=== PATIENT | female | born 1935 | race Caucasian/White ===

== ENCOUNTER 2020-02-11 18:51 | Inpatient (IN) | payer OTHER ==
[~2020-02-11] VITALS: Ht 162.6 cm; Wt 51.7 kg
[~2020-02-11 18:51] MED LIST: B12INJ PO; CARAFATE1 GM PO; CHILDREN'S ASPI81 M1 PO; IRON325 M1 PO; LISINOPRIL10 MG PO; NIASPAN ER 101000 M1 PO; PAXIL10 MG PO; PROTONIX40 M4 PO; TYLENOL325 MG PO; VALIUM5 MG PO; VITAMINC500 PO; ZOCOR40 MG PO
[2020-02-11 19:02] VITALS: BP 133/60
[2020-02-11 20:18] LABS: ABSOLUTE NEUTROPHILS 5.3 thou/uL (1.4-8.2); BASOPHILS 0.3 % (0.0-2.0); EOSINOPHILS 0.9 % (0.0-3.0); HEMATOCRIT 42.7 % (37.0-47.0); HEMOGLOBIN 14.2 gm/dL (12.0-15.0); LYMPHOCYTES 9.9 % (24.0-44.0); MCH 31.6 pg (26.0-34.0); MCHC 33.2 g/dL (28.0-37.0); MCV 95.2 fL (80.0-100.0); MONOCYTES 11.3 % (1.0-8.0); PLATELET COUNT 236 thou/uL (150-400); POLYS 77.6 % (36.0-66.0); RBC 4.48 mil/uL (4.20-5.00); RDW 13.1 % (10.5-14.5); URINE BILIRUBIN NEGATIVE (Negative); URINE BLOOD NEGATIVE (Negative); URINE CLARITY SL CLOUDY; URINE COLOR YELLOW; URINE GLUCOSE-RANDOM* NEGATIVE (Negative); URINE KETONES NEGATIVE (Negative); URINE NITRITE-REFLEX NEGATIVE (Negative); URINE PROTEIN (DIPSTICK) NEGATIVE (Negative); URINE SPECIFIC GRAVITY 1.025 (1.005-1.035); WBC 6.8 thou/uL (4.0-11.0)
[2020-02-11 20:21] LABS: URINE LEUKOCYTES-REFLEX 2+ (Negative)
[2020-02-11 20:26] LABS: BACTERIA-REFLEX >30 Many /HPF (None Seen); CASTS None Seen /LPF (None Seen); CRYSTALS None Seen /LPF (None Seen); SQUAMOUS 0-3 Few /LPF (0-3); URINE RBC None Seen /HPF (0-2); URINE WBC-REFLEX 6-15 Few /HPF (0-5)
[2020-02-11 20:28] LABS: CREATININE 0.9 mg/dL (0.6-1.0); POTASSIUM 3.6 mmol/L (3.5-5.1)
[2020-02-11 22:17] VITALS: BP 139/72
[2020-02-11 22:25] LABS: FOLIC ACID 18.6 ng/mL (8.6-58.9); TSH 1.019 uIU/mL (0.358-3.740)
[2020-02-11 22:26] VITALS: BP 133/69
[2020-02-12 04:20] VITALS: BP 146/79
--- NOTE | 2020-02-12 04:53 | NUR ---
PT ARRIVED TO UNIT WITH SON, CYNTHIA AT BEDSIDE. PT AOX2, SELF AND TIME. PT CONFUSED IN REGARDS TO PLACE REPORTING SHE IS AT [facility] AND IN REGARDS TO SITUATION REPORTING SHE DOES NOT KNOW WHY SHE IS IN THE HOSPITAL AND WHO LEFT HER HERE. PT DENIES PAIN AND SOA. PT NOTED TO BE SEVERELY ANXIOUS AND RESTLESS EVIDENCE BY MULTIPLE EPISODES OF HER GETTING OUT OF BED AFTER BEING TOILETED REPORTING SHE HAS TO GO TO THE BATHROOM AGAIN. PT NOTED TO REPEAT THE SAME QUESTIONS WITHOUT RECALL OF ANSWER OR PREVIOUS BEHAVIORS. PT GIVEN IV HALDOL X1 WITHOUT EFFECT. RECEIVED ORDER FOR IM ZYPREXA X1 WITHOUT EFFECT. PT CONTINUES TO BE RESTLESS AND ANXIOUS. LIBRARY MONITOR NOTIFIED, PT ROOM MOVED NEAR NURSES STATION. RECEIVED ORDERS FOR IV ATIVAN X1 WITH EFFECT. PT OBSERVED RESTING WITHOUT INTERRUPTION OR OBSERVATION OF PAIN OR DISCOMFORT. PT AMBULATING WITH STBA TO BATHROOM AND BEDSIDE COMMODE. ENCOURAGED PT TO NOTIFY STAFF FOR ALL NEEDS AND CONCERNS. CALL LIGHT WITHIN REACH, BED ALARM ON, BED IN LOWEST POSITION. WILL CONTINUE TO MONITOR.
[2020-02-12 06:31] LABS: CALCIUM 8.2 mg/dL (8.5-10.1); CREATININE 0.7 mg/dL (0.6-1.0); POTASSIUM 3.6 mmol/L (3.5-5.1)
[2020-02-12 08:26] VITALS: BP 125/68
--- NOTE | 2020-02-12 08:52 | EKG ---
[facility] [place] [address] ELECTROCARDIOGRAM REPORT Name: JAYDEN BEEBE Room #: 446-P ADM IN M.R.#: [id number] Admission: 02/11/20 Attend Phys: Malena Amaro Discharge: Date of : 37 Report #: [id number] THIS REPORT FOR: cc: Gurpreet Schwarz MD, Austin T. MD Lundgren, Craig H. MD [facility] ~ THIS REPORT FOR: //name// [facility] ED Test Date: 2020-02-11 Test Time: 19:19:20 Pat Name: JAYDEN BEEBE Department: Room: [facility] Gender: F Learning Technologies Specialist: TIRSO : 1935 Requested By: Ricardo Russell Order Number: [id number] MD: Dominik Paulino Measurements Intervals [place] Rate: 70 P: 79 NJ: 115 QRS: 48 QRSD: 94 T: 113 QT: 360 QTc: 389 Interpretive Statements Sinus rhythm Borderline short [place] interval Nonspecific T abnrm, anterolateral leads Compared to ECG 03/21/2015 22:05:34 Atrial premature complex(es) no longer present Electronically Signed On 02-12-2020 8:51:18 CDT by Dominik Paulino [email or web address] <ELECTRONICALLY SIGNED> By: Dominik Paulino MD, [facility] 02/12/20 0851 18 18 Dominik Paulino MD, [facility] /EPI
--- NOTE | 2020-02-12 15:31 | NUR ---
PT ADMITTED RELATED TO UTI, CONFUSION. CM REVIEWED CHART AND SPOKE WITH CARE TEAM. CM CALLED AND SPOKE WITH PT'S SON CYNTHIA. HE INDICATED THAT PT RESIDES IN [place] AT [facility] A GROUP HOME COMMUNITY WITH HER SPOUSE. 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 HE STATED THAT FACILITY PROVIDES LUNCH BUT THAT PT DOESN'T GO TO EAT. 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 SON INDICATED NO HH OR SKILLED HX. HE IS INTERESTED IN GETTING SECONDARY MEDICAID IN THE EVENT PT NEED LTC PLACEMENT. CM INDICATED THAT PT, OT, AND PSYC WOULD SEE PT AND MAKE RECOMMENDATIONS FOR APPROPRIATE LEVEL OF CARE UPON DC. CM TO FAX FACESHEET TO [employer] FOR THEM TO FOLLOW UP TO ASSIST WITH MEDICAD APPLICATION. CM TO FOLLOW INDICATED WITH DC PLANNING.
--- NOTE | 2020-02-12 17:25 | NUR ---
PT ASSESSED AT START OF SHIFT. CALM AND COOPERATIVE BUT INTERMITTENT CONFUSION AND IMPULSIVE. PO HYDROXYZINE GIVEN THIS AFTERNOON WHICH HELPED SOME. DR. DAVISON HERE FOR GERIPSYCH CONSULT. NO ORDERS. SODIUM LEVEL RETURNED TO NORMAL. IV FLUIDS DC'D. PT EATING AND DRINKING OK. AMBULATES STEADY W/ STANDBY. PT/OT EVALS ORDERED.
[2020-02-12 19:29] VITALS: BP 152/67
--- NOTE | 2020-02-13 02:23 | NUR ---
ASSUMED PT CARE AT 1900. PT VERY CONFUSED. CONSTANTLY GETTING UP WITHOUT HELP. WORRIED THAT DOESN'T KNOW WHERE SHE IS. DIDN'T SLEEP AT ALL DESPITE BEING MEDICATED. URINE SAMPLE COLLECTED AND SENT TO LAB. ANTIBIOTICS INFUSED PER ORDER. UP TO TOILET WITH WALKER AND STANDBY, STEADY ON FEET. IMPULSIVE, AND RESTLESS ALL EVENING.
[2020-02-13 04:09] VITALS: BP 168/77
[2020-02-13 06:30] LABS: CALCIUM 9.1 mg/dL (8.5-10.1); CREATININE 0.7 mg/dL (0.6-1.0); PHOSPHORUS 2.9 mg/dL (2.5-4.9)
[2020-02-13 07:17] VITALS: BP 171/84
--- NOTE | 2020-02-13 12:08 | NUR ---
FAXED FACE SHEET TO MIRIAM AT [facility] RECEIVED CONFIRMATION TO HELP WITH MEDICAID APPLICATION FOR SECONDARY INSURANCE.
--- NOTE | 2020-02-13 15:26 | NUR ---
PT STILL RECEIVING IV ABX FOR UTI. CARE TEAM INDICATED THAT SKILLED POST ACUTE CARE STAY MIGHT BE APPROPRIATE UPON DC. CM CALLED PT'S SON CYNTHIA AND LEFT VM TO DISCUSS WHERE THEY MIGHT LIKE REFERRALS SENT FOR POSSIBLE ADMISSION. AWAITING RESPONSE. FACE SHEET HAD BEEN SENT TO [facility] FOR THEM TO ASSIST WITH SECONDARY MEDICAID APPLICATION.
[2020-02-13 16:23] VITALS: BP 131/67
--- NOTE | 2020-02-13 17:05 | NUR ---
VSS-AFEBRILE. LUNGS CLEAR-ROOM AIR. VERY CONFUSED TODAY, WELL VISUAL AND AUDITORY HALLUCINATIONS. NIGHT NURSE REPORTS THAT PATIENT HAS BARELY SLEPT IN THE LAST 24-36 HOURS. CAN BE IMPULSIVE, FALL PRECAUTIONS IN PLACE. AWAITING DISCHARGE ORDERS WITH HOME HEALTH TO BE SET UP. BED AND CHAIR ALARMS ACITVATED.
[2020-02-13 19:07] VITALS: BP 148/81
--- NOTE | 2020-02-14 04:12 | NUR ---
ASSUMED PT CARE AT 1900. PT CONTINUES TO BE SEVERELY CONFUSED AND IMPULSIVE. CONSTANTLY TRYING TO GET OUT OF BED. AUDITORY AND VISUAL HALLUCINATIONS, PT THINKS HER IS IN THE ROOM AND IS CONVERSING WITH HER. UP TO TOILET WIHT WALKER, STEADY ON FEET. LOST IV ACCESS THEN PT TOOK OUT THE NEW ONE. WILL CONTINUE TO MONITOR.
[2020-02-14 05:00] VITALS: BP 150/80
[2020-02-14 07:38] VITALS: BP 143/66
--- NOTE | 2020-02-14 09:52 | NUR ---
CM CALLED PT'S SON AGAIN THIS AM AND LEFT VM REQUESTING PC REGARDING SKILLED FACILITIES HE WOULD LIKE REFERRALS SENT TO. AWAITINF RESPONSE.
--- NOTE | 2020-02-14 10:32 | NUR ---
PT IS RESTING IN BED WAS UP IN BEDSIDE CHAIR FOR BREAKFAST NOW IS IN BED SLEEPING. PT WAS GIVEN TYLENOL EARLIER.
--- NOTE | 2020-02-14 14:06 | NUR ---
CM SPOKE WITH PT'S SON THIS AM AND PROVIDED HIM A LIST OF SNF TO REVIEW. HE ASKED THAT REFERRAL BE SENT TO [facility]. REFERRAL SENT AWAITING RESPONSE.
[2020-02-14 15:03] LABS: ABSOLUTE NEUTROPHILS 4.4 thou/uL (1.4-8.2); BASOPHILS 0.7 % (0.0-2.0); EOSINOPHILS 1.6 % (0.0-3.0); HEMATOCRIT 46.5 % (37.0-47.0); HEMOGLOBIN 15.5 gm/dL (12.0-15.0); LYMPHOCYTES 10.7 % (24.0-44.0); MCHC 33.4 g/dL (28.0-37.0); MONOCYTES 9.2 % (1.0-8.0); PLATELET COUNT 285 thou/uL (150-400); POLYS 77.8 % (36.0-66.0); RBC 4.84 mil/uL (4.20-5.00); RDW 13.4 % (10.5-14.5); WBC 5.7 thou/uL (4.0-11.0)
[2020-02-14 15:43] LABS: ALBUMIN 3.1 g/dL (3.4-5.0); CALCIUM 9.9 mg/dL (8.5-10.1); CREATININE 0.9 mg/dL (0.6-1.0); POTASSIUM 3.9 mmol/L (3.5-5.1); TOTAL BILIRUBIN 0.5 mg/dL (<0.1-1.0); TOTAL PROTEIN 6.4 g/dL (6.4-8.2)
--- NOTE | 2020-02-14 15:54 | NUR ---
FAXED REFERRAL TO [facility] SPOKE WITH JAZZY IN ADM SHE RECEIVED REFERRAL AND IS GOING TO SPEAK WITH SON (DPOA) AND WILL LET ME KNOW IF SHE CAN ACCEPT. DP TO FOLLOW.
--- NOTE | 2020-02-14 19:22 | NUR ---
PT IN BEDSIDE CHAIR EATING DINNER SHE PICKS AT MEAL DRINKING ENSURE. PT HAS CONFUSION. NEEDS REDIRECTED FREQUENTLY.NO PAIN OR RESP DISTRESS AT THIS TIME. INCONT OF B&B.ROOM AIR. RIGHT IV SL.
[2020-02-14 19:35] VITALS: BP 129/56
--- NOTE | 2020-02-15 06:06 | NUR ---
pt was getting agitated at the start of the shift, impulsive. night meds given and pt was able to sleep all night. pt has not had a good rest in about 3days. pt is cont and can be incont of urine. pt is a ashly fall risk. fall prec in place. v/s stable. no s/s of distress. will cont to monitor
[2020-02-15 07:17] VITALS: BP 104/58; BP 149/82; BP 86/53
--- NOTE | 2020-02-15 14:43 | NUR ---
[facility] INDICATED THAT THEY AREN'T ABLE TO ACCEPT PT THEY DONM T HAVE VASILIY OPEN BEDS ON THEIR SECURED UNIT. CM NOTOFIED PT'S SON CYNTHIA AND HIS ANUPAM. CM INDCIATED THAT DR. DAVISON WITH PSYC INDICATED PT MIGHT BENEFIT FROM SHORT STAY ON [facility]. THEY INDICATED THEY WEREN'T OPPOSED TO THAT. ANUPAM EMAILED DPOA PAPERWORK IT WAS PLACED ON CHART. DR. DAVISON INDICATED THEY COULD ACCEPT PT TOMORROW LONG HER LABS TO CHECK BMP WERE STABLE. ONCE MEDICALLY STABLE CONTACT [facility] AT AND NOTIFY FAMILY OF TRANSFER. CM ABLE TO FOLLOW INDICATED WITH DC PLANNING.
[2020-02-15 15:30] VITALS: BP 120/54
[2020-02-15 19:45] VITALS: BP 126/68
--- NOTE | 2020-02-16 03:35 | NUR ---
PT CARE ASSUMED AT 1915 .PT IS ALERT AND VERY CONFUSED.PT IS ON ROOM AIR.PT IS IN HEART HEALTHY DIET AND NEEDS TRAY TO NE SET UP.PT IS INCONTINENT TO B/B.PT IS ON NS 75ML/HR WITH IV ACCESS ON RFA.WILL CONTINUE TO MONITOR PRT POC
[2020-02-16 04:15] VITALS: BP 117/74
[2020-02-16 06:28] LABS: CALCIUM 9.2 mg/dL (8.5-10.1); CREATININE 0.8 mg/dL (0.6-1.0)
[2020-02-16 09:40] VITALS: BP 141/73
[2020-02-16 15:31] VITALS: BP 147/59
--- NOTE | 2020-02-16 15:31 | NUR ---
PT ASSESSEDA AT START OF SHIFT. PT ORIENTED TO SELF BUT VERY CONFUSED AND REPETATIVE. REORIENTED TO SITUATION. PT IS CALM AND COOPERATIVE BUT SOMEWHAT ANXIOUS. ZYPREXA GIVEN W/ SOME NOTED RELAXATION. EATING AND DRINKING WELL. AMBULATES FAIRLY STEADY W/ WALKER AND STANDBY ASSIST. SODIUM BETTER TODAY.
[2020-02-16 20:00] VITALS: BP 120/57
--- NOTE | 2020-02-17 01:48 | NUR ---
ASSUMED PT CARE AT 1900. PT VERY ANXIOUS TONIGHT. WORRIED ABOUT IV, CONCERNED ABOUT NOT HAVING CLOTHES TO WEAR. EXPERIENCING VISUAL HALLUCINATIONS - CONSTANTLY ASKING WHO IS IN HER BED OR "WHERE DID THOSE KIDS GO?" AND DTR CALLED THIS EVENING, PROVIDED UPDATES FOR BOTH. PT BELIEVES SHE IS GOING HOME TOMORROW, FREQUENTLY REMINDED OTHERWISE. UP TO TOILET WITH WALKER, STEADY ON FEET. SLEPT FOR ROUGHLY 2 HOURS THIS EVENING TOTAL.
--- NOTE | 2020-02-17 04:20 | NUR ---
PT CARE ASSUMED AT 0200 WITH PT IN BED.PT KEPT GETTING OUT OF BED AND DOESNOT LISTEN TO DIRECTION.PT IS VERY CONFUSED AND HALLUCINATING.PT GIVEN OLANZAPINE AND PT STILL AGITATING.BULK SEALER OPERATOR MAUREEN PAGED AND ORDERED HALDOL 2.5MG ONETIME DOSE.WILL CONTINUE TO MONITOR PT PER POC
[2020-02-17 07:37] VITALS: BP 154/71
--- NOTE | 2020-02-17 18:10 | NUR ---
VSS-AFEBRILE. LUNGS CLEAR-ROOM AIR. ORIENTED TO PERSON ONLY.REMAINS IMPULSIVE. OOB WITH 1 ASSIST AND USE OF WALKER. DECLINED ALL MEALS TODAY, ONLY CONSUMED HER DIET SUPPLEMENTS. IV REMOVED, AND REPORT CALLED TO [facility]. TRANSPORTED WITH ALL PERSONAL BELONGINGS VIA WHEELCHAIR. SON CYNTHIA NOTIFIED OF TRANSFER, WILL BRING MORE CLOTHING FOR PATIENT TOMORROW.
[2020-02-17] MEDS ORDERED: TRAZODONE HCL50 MG PO (23:48)
[2020-02-17] MEDS ORDERED: LACTULOSE PO (23:49)
[2020-02-17] MEDS ORDERED: VITAMIN D32000 UNI2 PO (23:50)
[2020-02-17] MEDS ORDERED: ROCEPHIN 11 GM/1001 IV (23:51)
[2020-02-17] MEDS ORDERED: OLANZAPINE2.5 MG PO (23:52)
== END 2020-02-17 18:15 | DRG 689 ==
LOC: ER 18:51 → EROBS 21:01 → 4S 21:01
PROVIDERS: Emergency Medicine; Internal Medicine; Nurse Practitioner Family; Psychiatry & Neurology Psychiatry; ADMIT Hospitalist
DX: N39.0 Urinary tract infection, site not specified (principal); E43 Unspecified severe protein-calorie malnutrition; G93.41 Metabolic encephalopathy; E87.1 Hypo-osmolality and hyponatremia; E86.0 Dehydration; I10 Essential (primary) hypertension; E78.00 Pure hypercholesterolemia, unspecified; Z96.641 Presence of right artificial hip joint; Z90.49 Acquired absence of other specified parts of digestive tract; F03.90 Unspecified dementia, unspecified severity, without behavioral disturbance, psychotic disturbance, mood disturbance, and anxiety; Z88.0 Allergy status to penicillin; E55.9 Vitamin D deficiency, unspecified; K59.00 Constipation, unspecified; F32.9 Major depressive disorder, single episode, unspecified; F41.9 Anxiety disorder, unspecified; R41.0 Disorientation, unspecified; E78.5 Hyperlipidemia, unspecified; G47.00 Insomnia, unspecified
CPT/HCPCS: 10102

== ENCOUNTER 2020-02-17 18:14 | Inpatient (IN) | payer OTHER ==
[~2020-02-17] VITALS: Ht 154.9 cm; Wt 54.0 kg
[2020-02-17 18:30] VITALS: BP 136/68
--- NOTE | 2020-02-17 19:59 | NUR ---
1809 PATIENT ARRIVED TO [facility] UNIT VIA WC ACCOMPANIED BY OVER HAULER HELPER. PATIENT IN WC SITTING IN DAY ROOM. WHEN TELEPHONE CLERK TELEGRAPH OFFICE APPROCHED PATIENT, PATIENT WAS CONFUSED TO WHERE SHE WAS. TELEPHONE CLERK TELEGRAPH OFFICE ORIENTED PATIENT TO BEING IN HOSPITAL ON THE [facility] UNIT. PATIENT STATES SHE IS HERE FOR RENAL DISEASE AND THAT SHE IS GETTING TESTS DONE. WHILE TALKING TO PATIENT, PATIENT IS PARANOID THAT OTHERS ARE LOOKING AT HER. WHEN TELEPHONE CLERK TELEGRAPH OFFICE ASKS IF PATIENT IS HAVING HALLUCINATIONS PATIENT DENIES. TELEPHONE CLERK TELEGRAPH OFFICE EXPLAINS TO PATIENT SHE WILL BE HAVING A ROOMMATE AND PATIENT STATES "ONLY ROOMATE I CAN HAVE IS MY ". PATIENT DOES LIVE WITH . PATIENT TAKEN TO ROOM FOR PHYSICAL EXAM. PATIENT NOTED WITH NO BRIEF ON, DENIED NEED TO USE BATHROOM AT THAT TIME. SKIN IS INTACT WITH NO RED AREAS NOTED. LUNG SOUNDS CLEAR, BS ACTIVE, NO EDEMA NOTED. FEW SCABS NOTED TO ARMS AND HANDS. DENIES PAIN AT THAT TIME. PATIENT NOTED TO BE UNSTEADY WHEN PATIENT STANDS UP. BRIEF APPLIED AND TAKEN TO DAYROOM IN WC DENIES NEEDS AT THIS TIME. REPORT GIVEN TO ONCOMING SHIFT. LUNG SOUNDS CLEAR, BS ACTIVE
[2020-02-17 23:08] VITALS: BP 136/68
[2020-02-17] MEDS ORDERED: TRAZODONE HCL50 MG PO (23:48)
[2020-02-17] MEDS ORDERED: LACTULOSE PO (23:49)
[2020-02-17] MEDS ORDERED: VITAMIN D32000 UNI2 PO (23:50)
[2020-02-17] MEDS ORDERED: ROCEPHIN 11 GM/1001 IV (23:51)
[2020-02-17] MEDS ORDERED: OLANZAPINE2.5 MG PO (23:52)
--- NOTE | 2020-02-18 01:16 | NUR ---
PATIENT SAT UP IN WC IN DINING ROOM TONIGHT UNTIL SHE WAS READY AND ASSISTED TO BED AT 2200. TYLENOL 650MG WAS GIVEN FOR L KNEE PAIN OF 3/10. SHE IS CONFUSED AND NOT SURE HOW SHE ENDED UP HERE. SHE THINKS HER GOT TIRED OF HER AND SENT HER HERE. SHE TOOK HER MEDS WHOLE WITH WATER AND WITHOUT INCIDENT. PATIENT STATES SHE LIVES AT HOME WITH HER . SHE HAS BEEN CALM BUT A LITTLE ANXIOUS UNDERSTANDING WHAT IS GOING ON. SHE HAS BEEN INDEPENDENT WITH CARES. PATIENT HAS BEEN KNOWN TO BE IMPULSIVE AND IS UNSTEADY ON HER FEET SO SHE HAS BEEN USING A WC. CHAIR ALARM IN CHAIR. PATIENT IS IN BED NOW AND SLEEPING. CONTINUAL ROUNDS. NO SI/HI/AVH. BED IN LOW POSITION AND BED ALARM IS ON. CONTINUING TO MONITOR.
[2020-02-18 08:24] VITALS: BP 127/67
--- NOTE | 2020-02-18 09:20 | NUR ---
0700 ASSUMED CARE OF PATIENT. PATIENT IN BED WITH EYES CLOSED AT THAT TIME. 0800 PATIENT TO BREAKROOM FOR BREAKFAST. AMBULATED X1 ASSIST. DENIES NEEDS AT THIS TIME. WILL CONTINUE TO OBSERVE.
--- NOTE | 2020-02-18 16:20 | NUR ---
PATIENT SITTING AT TABLE IN DAY ROOM. PATIENT IS PLEASANTLY CONFUSED. PATIENT STATING SHE NEEDS TO GO SEE HER FRIEND SHE TAKES CARE OF HER. PATIENT IS ONLY ORIENTED TO PERSON. WHEN LOTTERY MANAGER EXPLAINS TO PATIENT WHERE SHE IS PATIENT SAYS SHE CAN'T BE. PATIENT TO BATHROOM, AMB USING WALKER WITH STEADY GAIT. BACK TO DAYROOM AND SITS AT TABLE. DENIES OTHER NEEDS AT THIS TIME.
[2020-02-18 19:21] VITALS: BP 117/72
[2020-02-19] VITALS (10 sets, daily range): BP systolic 88–129; BP diastolic 48–59
--- NOTE | 2020-02-19 05:00 | NUR ---
Assumed care of pt @ 1900. Pt calm et cooperative though very confused most of shift. Sat in dayroom et watched television with peers until HS but did not socialize with peers. Took medications whole without difficulty. Assisted with ambulating very short distances. Pt seemed very unsteady on her feet. VSWNL. Health assessment with no abnormalities noted at present time. Denies SI/HI but very confused during questioning. Was put to bed @ 2200 but kept attempting to climb out of bed. Pt was then assisted into a recliner et placed in the dayroom to be watched more closely. Zyprexa was given PRN for agitation. Pt was assisted back to bed around 0400. Currently resting in bed with eyes closed. Will continue to monitor per protocol.
--- NOTE | 2020-02-19 10:12 | EKG ---
[facility] [place] [address] ELECTROCARDIOGRAM REPORT Name: JAYDEN BEEBE Room #: [facility] ADM IN M.R.#: [id number] Admission: 02/17/20 Attend Phys: Terri Addison MD Discharge: Date of : 37 Report #: [id number] THIS REPORT FOR: cc: Gurpreet Schwarz MD, Austin T. MD Couchonnal, Luis F. MD ~ THIS REPORT FOR: //name// [facility] Test Date: 2020-02-19 Test Time: 10:02:50 Pat Name: JAYDEN BEEBE Department: Room: [facility] Gender: F Log Manager: LOUISA : 1935 Requested By: Sofia Chavez Order Number: [id number] MD: Akin Ruelas Measurements Intervals [place] Rate: 68 P: 67 MO: 109 QRS: 62 QRSD: 76 T: 99 QT: 367 QTc: 391 Interpretive Statements Sinus rhythm Short [place] interval Probable left atrial enlargement Nonspecific T abnrm, anterolateral leads Compared to ECG 02/11/2020 19:19:20 No significant changes Electronically Signed On 02-19-2020 10:11:08 CDT by Akin Ruelas [email or web address] <ELECTRONICALLY SIGNED> By: Akin Ruelas MD 02/19/20 1011 1002 1002 Akin Ruelas MD /EPI
--- NOTE | 2020-02-19 10:22 | NUR ---
FILL TECHNICIAN CALLED FOR PT AT 0949. PT BECAME UNRESPONSIVE IN DINING ROOM AFTER EATING BREAKFAST THIS MORNING. SEE FILL TECHNICIAN FLOWSHEET FOR DETAILS.
[2020-02-19 10:30] LABS: ABSOLUTE NEUTROPHILS 3.9 thou/uL (1.4-8.2); BASOPHILS 0.7 % (0.0-2.0); EOSINOPHILS 2.1 % (0.0-3.0); HEMATOCRIT 46.2 % (37.0-47.0); HEMOGLOBIN 15.1 gm/dL (12.0-15.0); LYMPHOCYTES 15.4 % (24.0-44.0); MCH 31.6 pg (26.0-34.0); MCHC 32.7 g/dL (28.0-37.0); MCV 96.8 fL (80.0-100.0); PLATELET COUNT 277 thou/uL (150-400); POLYS 70.8 % (36.0-66.0); RBC 4.77 mil/uL (4.20-5.00); RDW 13.3 % (10.5-14.5); WBC 5.6 thou/uL (4.0-11.0)
[2020-02-19 10:51] LABS: ANION GAP 7 mmol/L (7-16); BUN 18 mg/dL (7-18); CALCIUM 9.8 mg/dL (8.5-10.1); CHLORIDE 99 mmol/L (98-107); CO2 28 mmol/L (21-32); CREATININE 0.9 mg/dL (0.6-1.0); GLUCOSE 115 mg/dL (74-106); MAGNESIUM 2.2 mg/dL (1.8-2.4); SGOT 31 U/L (15-37); SGPT 36 U/L (30-65); SODIUM 134 mmol/L (136-145); TOTAL BILIRUBIN 0.4 mg/dL (<0.1-1.0); TOTAL PROTEIN 6.2 g/dL (6.4-8.2); TROPONIN-I <0.06 ng/mL (<0.06)
--- NOTE | 2020-02-19 14:57 | NUR ---
0740 Sitting at table in dining room with head turned to side. Responds to name and is able to ambulate to room with assistance with slow, steady gait. Orientated to name only, answers questions in a whisper. Denies SI/HI. Some rambling confused speech. Able to brush teeth independently after toothpaste placed on brush. Drank 100% of Ensure, compliant with meds. Calm and cooperative. Breath sounds clear t/o, bilaterally equal. Regular HR auscultated. Color pink with brisk capillary refill and palpable peripheral pulses +2/+4. No edema noted. Yellow urine per toilet. Active bowel sounds over soft, flat abdomen. Unable to state last BM. Ambulated back out to dining room with minimal assistance.
--- NOTE | 2020-02-19 15:02 | NUR ---
SW did a check in with pt instead of group due to COVID-19 guidelines. Pt had a critical incident this morning, and is currently in her room resting.
--- NOTE | 2020-02-20 02:50 | NUR ---
Assumed care of patient this pm shift. Patient in bed resting when RN assumed care. Patient denies pain. Patient denies hi/si. Patient confused. Patient in clean gown resting. Patient calm and cooperative. Patient takes medications whole. Patients assessment shows clear breath sounds, active bowel sounds, and s1 s2. Patient presently sleeping, no concerns. We will continue to monitor.
[2020-02-20 08:59] VITALS: BP 100/66
--- NOTE | 2020-02-20 09:58 | NUR ---
0700 ASSUMED CARE OF PATIENT, PATIENT GETTING READY TO GO TO DAY ROOM AT THAT TIME. PATIENT TO DAYROOM PER . PATIENT REQUESTING TO GO HELP HER , STATING "HE NEEDS MY HELP AND DOESN'T KNOW WHERE IM AT". PATIENT A&O X2, PATIENT PARANOID ABOUT HER APPEARANCE, WORRIED THAT OTHERS ARE LOOKING AT HER. WILL CONTINUE TO OBSERVE.
--- NOTE | 2020-02-20 13:57 | NUR ---
Sw met with pt and discussed her concerns about leaving. Sw reassured her that d/c was expected soon. She seemed satisfied with this response but is veru forgetful. There was no group to COVRUMA 19 restrictions
--- NOTE | 2020-02-20 16:37 | NUR ---
ARLEN contacted pt's DPOA and son Irineo and provided an update. He said he does not believe his mom can remain [place] and needs help with placement; his father will also have to be moved. ARLEN educated him on [place] vs [place] care. He said he would like a list of options emailed to him at [email or web address]. ARLEN emailed him a Medicare listing in the [place] area as he requested. He said he will respond with 3-5 options. SW team will continue to follow pt during her stay on this unit.
--- NOTE | 2020-02-20 18:11 | NUR ---
C/O PAIN TO LEFT KNEE RATING PAIN A 8 ON A NUMERIC PAIN SCALE. MUSCLE RUB APPLIED TO LEFT KNEE WHILE LYING IN BED. PATIENT STATES "IM GONNA TRY TO REST". WILL CONTINUE TO OBSERVE.
--- NOTE | 2020-02-20 19:04 | NUR ---
PATIENT CONFUSED AT THIS TIME. PATIENT WEARING GOWN LYING IN BED. SIDE RAILS UP. REPORT GIVEN TO ONCOMING SHIFT.
[2020-02-20 19:29] VITALS: BP 150/66
--- NOTE | 2020-02-21 00:46 | NUR ---
Assumed care at change of shift. Pt. was sitting in day room with walker in front of her. She denies any pain or needs. She ambulates with a slow and steady gait. She repeatedly asks about her and children. She wants to know where they are and when she will be able to see them again. Pt. assisted into bed.
[2020-02-21 08:44] VITALS: BP 112/58
--- NOTE | 2020-02-21 12:51 | NUR ---
PT A&OX2, UNABLE TO DETERMINE SI/HI. PATIENT PARTICIPATED IN MORNING ACTIVITIES AND ATE BREAKFAST. AFTER MORNING MEDS PATIENT WANTED TO SLEEP AND DID NOT WANT LUNCH. PATIENT COOPERATIVE. WILL CONTINUE TO MONITOR.
[2020-02-21 19:37] VITALS: BP 102/55
[2020-02-21 20:00] VITALS: BP 102/55
--- NOTE | 2020-02-21 22:53 | NUR ---
PT ASSESSMENT DONE AND VSS. MEDS GIVEN AND WELL TOLERATED. FALL PRECAUTIONS IN PLACE. WENT TO BED EARLY. ONLY CONCERNED ABOUT WHEN HER MEDS WERE GOING TO COME. ALERT AND COOPERATIVE. WILL CONTINUE TO MONITOR.
[2020-02-22 07:30] VITALS: BP 131/79
[2020-02-22 09:41] LABS: URINE BILIRUBIN NEGATIVE (Negative); URINE BLOOD NEGATIVE (Negative); URINE CLARITY SL CLOUDY; URINE COLOR YELLOW; URINE GLUCOSE-RANDOM* NEGATIVE (Negative); URINE KETONES TRACE (Negative); URINE LEUKOCYTES 2+ (Negative); URINE NITRITE NEGATIVE (Negative); URINE PROTEIN (DIPSTICK) NEGATIVE (Negative); URINE SPECIFIC GRAVITY 1.015 (1.005-1.035); URINE UROBILINOGEN 0.2 E.U./dl (0.2-1.0)
[2020-02-22 09:50] VITALS: BP 131/79
[2020-02-22 10:08] LABS: AMORPHOUS URATES Moderate /LPF (None Seen); BACTERIA 1-9 Few /HPF (None Seen); CASTS None Seen /LPF (None Seen); SQUAMOUS 4-10 Moderate /LPF (0-3); URINE RBC None Seen /HPF (0-2); URINE WBC 6-15 Few /HPF (0-5)
--- NOTE | 2020-02-22 10:50 | NUR ---
1030 RESUMMED CARE FROM OVERNIGHT SHIFT THIS AM, PATIENT VERY ANXIOUS AND STILL IN ROOM. PATIENT WAS ASSISTED WITH HYGEINE AND USED A WALKER TO COME TO THE DAY ROOM TO EAT BREAKFAST. PATIENT TOOK MEDICATION WITHOUT INCIDENCE, PATIENT BOWEL SOUNDS PRESENT IN ALL 4 QUADRANTS. ABDOMEN SOFT LUNGS CLEAR PATIENT HAS A RED AREA IN BART AREA I PUT SOME BARRIER OINTMENT IN AREA. I COLLECTED THE UA THIS AM PATIENT WENT BACK TO LIE DOWN AFTER BREAKFAST. PATIENT DENIES SI/HI/AH/VH AT PRESENT WILL CONTINUE TO MONITOR PATIENT FOR SAFETY AMD BEHAVIORS.
--- NOTE | 2020-02-22 15:14 | NUR ---
PATTERN ILLUSTRATOR completed 1:1 visit with peer who was seated at table in day room. Funmilayo expressed that she would like to nap, but feels as if she goes to her room for a nap she will miss out on the happenings in the day room. Funmilayo spoke about her great grandchildren from out of state and how she misses them.
--- NOTE | 2020-02-22 16:04 | NUR ---
Pt completed Medicaid viviana via phone today with [employer]. SW assisted pt in signing her Medicaid viviana. SW sent referrals to Tenn[facility] Garza, Jason Anthony, and [facility] for pt. SW team will continue to follow pt during her stay on this unit.
[2020-02-22 20:03] VITALS: BP 126/67
--- NOTE | 2020-02-22 22:20 | NUR ---
Assumed care at change of shift. Pt. was already in room dressed only in a gown and brief. She repeatedly called this nurse into her room for multiple different request. She then would repeat the same request within 5 - 10 minutes. HS meds given. Will monitor effects of Trazadone that is scheduled. Pt. is up with a walker in hallway and furniture walks in room to bathroom. She is steady on her feet with a consistent gait. Pt. denies pain and no signs or symptoms of distress noted.
[2020-02-23 00:13] VITALS: BP 126/67
[2020-02-23 08:30] VITALS: BP 101/40
[2020-02-23 09:11] VITALS: BP 104/40
[2020-02-23 09:18] VITALS: BP 104/40
--- NOTE | 2020-02-23 10:24 | NUR ---
ASSUMED CARE OF PT AT 0700. PT AWAKE, COOPERATIVE AND SOMEWHAT ANXIOUS. PT SITTING UPRIGHT IN BED FOR BREAKFAST AND MEDICATIONS. PT GIVEN/TOOK MEDICATIONS, WHOLE, WITHOUT ANY DIFFICULTY. PT CONFUSED ABOUT HER LOCATION, STATING, "I NEED TO GET OUT OF THIS BASEMENT... MY DOESN'T KNOW WHERE I AM." PT REDIRECTED AND REORIENTED TO ROOM/UNIT. PT STATES SHE HAS PAIN IN RLE AND WOULD LIKE TO STAY IN BED FOR THE MORNING. DECLINED TO PARTICIPATE IN GROUP/ACTIVITY. PT STATES PAIN IS 3/10 AND DECLINED ANY PRN PAIN MEDICATION. PTS WATER REFILLED AND PLACED AT BEDSIDE; PT ENCOURAGED TO DRINK FLUIDS. PT DENIES SI/HI/AH/VH. PT ASSISTED WITH ADLs. WILL CONTINUE TO MONITOR.
--- NOTE | 2020-02-23 13:00 | NUR ---
0900 PATIENT REFUSED TO GET UP TO COME TO GROUP SHE STATES SHE HURTS. I TOLD PATIENT THAT WHEN YOU LAY IN BED AND DON'T MOVE AROUND YOU BECOME STIFF. I MADE PATIENT GET UP TO EAT LUNCH AFTER LUNCH SHE TALKED HER NURSE TO LET HER GO BACK TO BED. PATIENT IS VERY CONFUSED AND IS VERY ANXIOUS WILL CONTINUE TO ENCOURAGE PATIENT.
--- NOTE | 2020-02-23 15:27 | NUR ---
ASSUMED CARE OF PT. PT WAVING AT NURSE TO COME TO HER. PT STATED SHE FINISHED HER PAPERS AND SHE SHOULD BE ABLE TO GO HOME. REDIRECTED PT AND STATED WE NEED DR. ANGUIANO FOR DISCHARGE AND DR. CARTER WILL BE HERE TUESDAY TO SEE HER AND WEB SITE ADMINISTRATOR. PT DID'T LIKE THE BED ALARM ON DUE TO PT IMPULSIVE. PT STATED IT MAKES HER NERVOUS LIKE SHE DID SOMETHING WRONG. EDUCATED PT ON THE ALARM IS FOR HER SAFETY TO PREVENT FALLS. PT STILL WANTING ALARM TO BED OFF. PT CONTINUES ABOUT IS SHE GOING HOME SOON.
--- NOTE | 2020-02-23 17:00 | NUR ---
PT ENCOURAGED TO EAT DINNER. PT WALKED OUT TO DINING ROOM WITH ASSISTANCE. PT STATED SHE DIDN'T WANT TO EAT MEAT LOAF STATING SHE ISN'T HUNGRY. ENCOURAGED PT TO EAT ICE CREAM AND DRINK ENSURE DRINK. PT DID DRINK ENSURE AND ATE ICE CREAM. PT STATED SHE WANTED TO GO BACK TO BED AFTER EATING. PT STATED SHE DIDN'T FEEL GOOD. ASKED PT HOW LONG IS SHE GOING TO BE IN BED, SHE STATED UNTIL SHE FELT BETTER.
--- NOTE | 2020-02-23 18:41 | NUR ---
PT COMPLAINING OF HER STOMACH HURTING. PT WENT BACK TO BED AFTER EATING. ENCOURAGED PT TO SIT UP FOR 30 MIN AFTER EATING.
[2020-02-23 20:24] VITALS: BP 119/71
--- NOTE | 2020-02-23 20:53 | NUR ---
Assumed care of patient at change of shift. Pt. repeatedly calling for nurse. She states her stomach hurt and she "feels sick to her stomach". Assessment completed. Abd. round, soft and non-tender to palpation. She continues to complain of nausea. No emesis noted. Pt. had BM last evening and this AM also but continues to state that she hasn't had a BM and request medication to help produce one. Education done regarding the effects of this cycle could be and often is nausea. PRN Zofran given with evening meds for nausea and PRN olanzapine given for anxiety. Emotional support given to patient and she was assured that she is not alone and that we are here to take care of her and help her when she needs assist. Pt. assured that my work station was right outside her door and that I would hear her if she called out for help.
[2020-02-24 03:45] VITALS: BP 147/81
[2020-02-24 04:16] LABS: HEMATOCRIT 48.9 % (37.0-47.0); HEMOGLOBIN 16.3 gm/dL (12.0-15.0); MCH 31.9 pg (26.0-34.0); MCHC 33.4 g/dL (28.0-37.0); MCV 95.7 fL (80.0-100.0); RBC 5.11 mil/uL (4.20-5.00); RDW 13.5 % (10.5-14.5); WBC 9.1 thou/uL (4.0-11.0)
[2020-02-24 04:50] LABS: ALBUMIN 3.5 g/dL (3.4-5.0); CREATININE 1.1 mg/dL (0.6-1.0); POTASSIUM 3.9 mmol/L (3.5-5.1); TOTAL BILIRUBIN 0.5 mg/dL (<0.1-1.0)
--- NOTE | 2020-02-24 05:10 | NUR ---
Patient has had moderate amount of dark brown emesis. Patient reporting that she needs to "throw up" frequently. Abdomen soft, round, nontender. Bowel sounds present x4. BM 02/23/20. Orders obtained for stat KUB, labs and emesis occult. stewardess supervisor notified of change in status. Patient remains alert and oriented to person. Confused, yelling out "help" several times. Requesting to go to bed, while she is already laying in bed. Asking where she is. Appears anxious, forgetful. Zofran ODT appeared to be helpful and patient was able to rest for a couple hours earlier in the shift. Patient is currently seated in recliner in dayroom with staff due to restlessness, yelling out, wanting to get up and anxiety. Providing one on one comfort frequently at this time.
[2020-02-24 05:11] VITALS: BP 147/81
[2020-02-24 08:45] VITALS: BP 152/77
--- NOTE | 2020-02-24 18:06 | NUR ---
DR. SWANSON AND DR. ELLIOTT CONTACTED REGARDING CONTINUED REPORTS OF NAUSEA-EPISODES OF EMESIS DURING NIGHT AND SUBSEQUENT LAB WORK AND KUB RESULTS. PT HAS BEEN VISIBLE IN DAYROOM ANXIOUS FACIAL EXPRESSION AND FREQUENTLY YELLING OUT FOR HELP-WHEN APPROACHED STATES FEELS SICK AND NEEDS TO LAY DOWN WHEN PLACED IN BED PER HER REQUEST YELLS FROM ROOM SHE WANTS TO GET UP-RESTLESS/AGITATED AND CONFUSED BUT NO FURTHER EPISODES OF EMESIS. IV STARTED IN RIGHT FOREARM BY IV TEAM AND NS 0.9% INFUSED AT 250ML PER HOUR X 4 HOURS WITHOUT INCIDENT. ATIVAN 1.5MG GIVEN IM LVG AT APPROX 0930 PRIOR TO IV START PER O DR. ELLIOTT FOR ABOVE NOTED AGITATION/RESTLESSNESS/SEVERE ANXIETY AND INABILITY TO TAKE PO MEDS D/T REPORTED NAUSEA.
--- NOTE | 2020-02-24 18:14 | NUR ---
HAS REMAINED RESTLESS/CONFUSED THROUGHOUT SHIFT. DID NAP FOR BRIEF INTERVAL IN GERICHAIR IN HALLWAY(APPROX [phone]). CONVERSATION FRAGMENTED,RAMBLING NON-GOAL DIRECTED AND OFTEN TIMES INCOHERENT. IS RESISTIVE WITH ALLOWING STAFF TO CHANGE CLOTHING,PROVIDE INCONTINENT CARE ETC. REQUIRES TOTAL ASSIST WITH ALL ADLS INCLUDING FEEDING AND APPETITE IS POOR DESPITE STAFF ENCOURAGEMENT-DID TAKE SUPPLEMENTS WITHOUT DIFFICULTY. AMBULATED IN HALLWAY WITH SBA X1 X 2 TODAY AND GAIT IS UNSTEADY AT [id number] IMPAIRED
[2020-02-24 21:43] VITALS: BP 142/88
--- NOTE | 2020-02-25 01:10 | NUR ---
Care assumed of patient at 191: Patient seated in w/c in hallway next to nurses station at start of shift. Patient repeating same questions over and over. Alert and oriented to person only. Confused and forgetful. Requesting to go home. Appears anxious and restless. Yelling for staff, knocking on the brown/windows. Patient denies pain or discomfort. Patient yelling out for staff, then when staff approaches her, she states she doesn't need anything. Patient ate 10% jello for HS snack. Took HS medication crushed with 2 bites yogurt. Patient provided 2 doses of Trazodone. Patient remained awake in bed, yelling rather late this shift. Denies anxiety, depression. Denies SI/HI/AH/VH. Patient will fall asleep for a short amount of time, then wake up yelling "help me, help me" over and over. When entering her room, patient states she is ready to go to bed, while already laying in bed. Patient did have one episode of emesis which appeared to be yogurt that was provided with HS medication. Patient restless, irritable, difficult to re-direct. Has required a large amount of staff resources thus far this shift. Fall precautions in place at this time.
[2020-02-25 09:01] VITALS: BP 110/82
--- NOTE | 2020-02-25 13:18 | NUR ---
[facility]; [facility] not accepting admissions due to COVID-19, and [facility] not have any memory beds at this time. [facility] sent referrals to Tom at [facility]. [facility] also sent an email to [facility] asking for more NH options. [facility] team will continue to follow pt during her stay on this unit.
[2020-02-25 14:16] LABS: ABSOLUTE NEUTROPHILS 15.5 thou/uL (1.4-8.2); BASOPHILS 0.1 % (0.0-2.0); HEMATOCRIT 50.9 % (37.0-47.0); HEMOGLOBIN 16.7 gm/dL (12.0-15.0); LYMPHOCYTES 3.3 % (24.0-44.0); MCH 31.2 pg (26.0-34.0); MCHC 32.9 g/dL (28.0-37.0); MCV 95.1 fL (80.0-100.0); PLATELET COUNT 295 thou/uL (150-400); POLYS 89.6 % (36.0-66.0); RBC 5.35 mil/uL (4.20-5.00); RDW 13.5 % (10.5-14.5); WBC 17.3 thou/uL (4.0-11.0)
[2020-02-25 14:38] LABS: ALBUMIN 3.8 g/dL (3.4-5.0); CALCIUM 10.4 mg/dL (8.5-10.1); CREATININE 1.4 mg/dL (0.6-1.0); POTASSIUM 4.1 mmol/L (3.5-5.1); TOTAL BILIRUBIN 0.8 mg/dL (<0.1-1.0)
--- NOTE | 2020-02-25 15:11 | NUR ---
Due to COVID-19 SW is meeting with patients and completing check-ins. Pt was asleep when SW did her rounds.
--- NOTE | 2020-02-25 17:15 | NUR ---
Patient out of bed for meals in recliner. Very disorganized. Oriented to name only. Fluids were being encouraged prior to dinner so straight cath specimen could be sent to lab. She became nauseated, even a few sips of lemon [place]. while in dining room patient was making gurgling sounds, Dr. Lopez evaluated patient in dining room and she was brought to her room. Dr. Addison was notified.
[2020-02-25] MEDS ORDERED: PANTOPRAZOLE SO40 M1 PO (18:31)
[2020-02-25] MEDS ORDERED: DEPAKOTE SPRIN125 MG PO ×2 (18:32)
--- NOTE | 2020-02-25 18:55 | NUR ---
1655 PATTIENT IS DISCHARGED TO THE MEDICAL FLOOR DUE TO VOMITING BLOOD. PATIENT HAD STAT CAT SCAN TO RULE OUT ABDOMINAL PAIN. PATIENT WAS BROUGHT BACK TO UNIT AND AT 1756 [facility] RESPONSE CALLED. PATIENT AT 1758. DR GONZALEZ IS GOING TO LET THE FAMILY KNOW.
--- NOTE | 2020-02-25 19:10 | NUR ---
Note correction of times: Wheeled to CAT scan and returned. Rapid response was called and eventually cancelled. Orders were set in motion for transfer to Medical floor. Medical bed was being cleaned. Dr. Addison urged her transfer. Patient's respirations were slowing to 4/min. by 1845. Dr. Amaro arrived, patient stopped breathing and pronounced at 1855. See Nursing Summary Worksheet for further detail.
--- NOTE | 2020-02-26 06:42 | NUR ---
AT 0000 [facility] CAME AND PICKED UP PT AND WAS ACCOMPANIED BY [facility]. NOTIFIED SUHAIL AT THE HOME THAT BODY HAD JUST BEEN PICKED UP. HE HAD REQUESTED I CALL HIM AT THIS POINT.
--- NOTE | 2020-02-26 06:45 | NUR ---
OBTAINED PATIENT AFTER SHE HAD PASSED AT 0655. PATIENT'S ROOM MATE WAS ASKED TO MOVE TO DINING ROOM. TOGETHER, THIS NURSE AND ALCIDES CORDOVA RN BATHED THE BODY AND POSITIONED BODY WITH CLEAN GOWN FOR FAMILY VIEWING. DR FRASER CALLED THE SON CYNTHIA AND LET HIM KNOW OF PROCESS AND CHANGES LEADING UP TO HER . MOVED PATIENT IN HER BED WITH HALLWAYS CLEARED TO ANOTHER ROOM FOR FAMILY TO VIEW D/T UNSURE HOW MUCH TIME THEY WOULD WANT TO SEE HER AND SO PT'S ROOM MATE COULD RETURN TO HER ROOM TO SLEEP. DR ANUPAM DAVISON STAYED TO SPEAK WITH FAMILY. THIS NURSE MET WITH FAMILY AND EXPLAINED NEXT STEPS, AND WENT THRU PATIENT'S BELONGINGS. FAMILY LEFT AROUND 2300. [facility] PICKED UP BODY AT MIDNIGHT ACCOMPANIED BY SECURITY.
== END 2020-02-25 18:55 | DRG 884 ==
LOC: SBH 18:14
PROVIDERS: Nurse Practitioner; ADMIT Psychiatry & Neurology Psychiatry
DX: F03.91 Unspecified dementia, unspecified severity, with behavioral disturbance (principal); K56.2 Volvulus; E87.1 Hypo-osmolality and hyponatremia; N39.0 Urinary tract infection, site not specified; G93.40 Encephalopathy, unspecified; R41.9 Unspecified symptoms and signs involving cognitive functions and awareness; I10 Essential (primary) hypertension; E78.00 Pure hypercholesterolemia, unspecified; Z96.641 Presence of right artificial hip joint; F32.9 Major depressive disorder, single episode, unspecified; E78.5 Hyperlipidemia, unspecified; Z66 Do not resuscitate; Z88.0 Allergy status to penicillin; Z90.49 Acquired absence of other specified parts of digestive tract
CPT/HCPCS: 10880